=== PATIENT | female | born 1995 | race Caucasian/White ===

== ENCOUNTER 2019-05-28 08:39 | Emergency (ER) | payer BC, OTHER ==
[~2019-05-28] VITALS: Ht 154.9 cm; Wt 51.8 kg
[~2019-05-28 08:39] MED LIST: NAPR-985 PO
[2019-05-28 08:45] VITALS: BP 142/67; PULSE 76; RESP 18; Ht 154.9 cm; Wt 51.8 kg
[2019-05-28] MEDS ORDERED: KETOROLAC 60 MG INJ IM STA (09:03)
== END 2019-05-28 10:10 | disposition home or self-care (01) ==
LOC: FTE 08:39
DX: R07.89 Other chest pain (principal); F17.210 Nicotine dependence, cigarettes, uncomplicated
CPT/HCPCS: 71045; 81003; 81025; 93005; 99284; J1885